=== PATIENT | female | born 1935 | race Caucasian/White ===

== ENCOUNTER 2017-01-21 09:49 | Emergency (ER) | payer MEDICARE, BC ==
[~2017-01-21] VITALS: Ht 160 cm; Wt 60.0 kg
[2017-01-21 09:55] VITALS: BP 179/77; PULSE 89; RESP 19; TEMP 98.1; O2SAT 95
--- NOTE | 2017-01-21 10:06 | PD ---
HPI Chief Complaint: Fall Time Seen by Provider: 10:02 Travel History International Travel<30 days: No Contact w/Intl Traveler<30days: No Traveled to known affect area: No History of Present Illness HPI 81-year-old female with history of hypertension, presents to the ER today brought in by EMS because she states that she had fallen at home onto the right hip, felt a crack and pain which she currently rates at a 7 out of 10 in the right hip which worsens with movements. She denies any head injury or any loss of consciousness. She denies a chest pains, shortness of breath, or any other issues. Modifying Factors: None Associated Signs & Symptoms: Right hip injury Risk Factors: None PFSH Past Medical History Cardiovascular Problems: Yes (high cholesterol, htn) Diabetes: Yes (type 2) ?: Not Past Surgical History Hysterectomy: Yes Social History Tobacco Use: No Allergies-Medications (Allergen,Severity, Reaction): Coded Allergies: Tetracycline (Verified Allergy, Severe, Hives, 01/21/17) Reported Meds & Prescriptions Reported Meds & Active Scripts Active Reported Simvastatin 20 Mg Tab 20 Mg PO DAILY Lisinopril 10 Mg Tab 10 Mg PO DAILY Metformin (Metformin HCl) 500 Mg Tab 500 Mg PO DAILY With a meal Review of Systems Except as stated in HPI: all other systems reviewed are Neg Physical Exam Narrative GENERAL: Well-developed elderly white female patient who is currently in mild distress. Awake, alert, oriented 3. SKIN: Focused skin assessment warm/dry. HEAD: Atraumatic. Normocephalic. EYES: Pupils equal and round. No scleral icterus. No injection or drainage. ENT: No nasal bleeding or discharge. Mucous membranes pink and moist. NECK: Trachea midline. No JVD. CARDIOVASCULAR: Regular rate and rhythm. No murmur appreciated. RESPIRATORY: No accessory muscle use. Clear to auscultation. Breath sounds equal bilaterally. GASTROINTESTINAL: Abdomen soft, non-tender, nondistended. Hepatic and splenic margins not palpable. Pelvis: Stable, tender to palpation of the right hip area with decreased range of motion secondary to pain. EXTREMITIES: No clubbing, cyanosis, or edema. No joint tenderness, effusion, or edema noted. Right dorsal pedis pulses present. MUSCULOSKELETAL: No obvious deformities. No clubbing. No cyanosis. No edema. NEUROLOGICAL: Awake and alert. No obvious cranial nerve deficits. Motor grossly within normal limits. Normal speech. PSYCHIATRIC: Appropriate mood and affect; insight and judgment normal. Data Data Last Documented VS Vital Signs Date Time Temp Pulse Resp B/P Pulse Ox O2 Delivery O2 Flow Rate FiO2 01/21/17 11:07 85 20 163/77 99 01/21/17 09:55 98.1 Orders Electrocardiogram (01/21/17 10:02) Complete Blood Count With Diff (01/21/17 10:02) Basic Metabolic Panel (Bmp) (01/21/17 10:02) Prothrombin Time / Inr (Pt) (01/21/17 10:02) Act Partial Throm Time (Ptt) (01/21/17 10:02) Urinalysis - C+S If Indicated (01/21/17 10:02) Hip, Uni(Ap&Lat) W Ap Pelvis (01/21/17 10:02) Morphine Inj (Morphine Inj) (01/21/17 10:15) Ondansetron Inj (Zofran Inj) (01/21/17 10:15) Urinary Catheter Insert/Apply (01/21/17 10:42) Ct Pelvis W/O Iv Contrast (01/21/17 ) Labs Laboratory Tests Test 01/21/17 01/21/17 10:00 11:09 White Blood Count 6.2 TH/MM3 Red Blood Count 5.05 MIL/MM3 Hemoglobin 15.0 GM/DL Hematocrit 44.0 % Mean Corpuscular Volume 87.1 FL Mean Corpuscular Hemoglobin 29.7 PG Mean Corpuscular Hemoglobin 34.1 % Concent Red Cell Distribution Width 14.0 % Platelet Count 199 TH/MM3 Mean Platelet Volume 8.2 FL Neutrophils (%) (Auto) 73.6 % Lymphocytes (%) (Auto) 13.7 % Monocytes (%) (Auto) 8.2 % Eosinophils (%) (Auto) 3.3 % Basophils (%) (Auto) 1.2 % Neutrophils # (Auto) 4.6 TH/MM3 Lymphocytes # (Auto) 0.9 TH/MM3 Monocytes # (Auto) 0.5 TH/MM3 Eosinophils # (Auto) 0.2 TH/MM3 Basophils # (Auto) 0.1 TH/MM3 CBC Comment DIFF FINAL Differential Comment Prothrombin Time 11.1 SEC Prothromb Time International 1.0 RATIO Ratio Activated Partial 25.0 SEC Thromboplast Time Sodium Level 143 MEQ/L Potassium Level 4.0 MEQ/L Chloride Level 103 MEQ/L Carbon Dioxide Level 32.6 MEQ/L Anion Gap 7 MEQ/L Blood Urea Nitrogen 16 MG/DL Creatinine 0.92 MG/DL Estimat Glomerular Filtration 59 ML/MIN Rate Random Glucose 128 MG/DL Calcium Level 9.2 MG/DL Urine Color YELLOW Urine Turbidity CLEAR Urine pH 7.0 Urine Specific [place] 1.011 Urine Protein NEG mg/dL Urine Glucose (UA) NEG mg/dL Urine Ketones NEG mg/dL Urine Occult Blood NEG Urine Nitrite NEG Urine Bilirubin NEG Urine Urobilinogen LESS THAN 2.0 MG/DL Urine Leukocyte Esterase NEG Urine RBC 1 /hpf Urine WBC LESS THAN 1 /hpf Urine Squamous Epithelial <1 /hpf Cells Microscopic Urinalysis Comment CULT NOT INDICATED MDM Medical Decision Making Medical Screen Exam Complete: Yes Emergency Medical Condition: Yes Medical Record Reviewed: Yes Interpretation(s) Laboratory Tests Test 01/21/17 10:00 Neutrophils (%) (Auto) 73.6 % (16.0-70.0) Monocytes (%) (Auto) 8.2 % (0.0-8.0) Lymphocytes # (Auto) 0.9 TH/MM3 (1.0-4.8) Carbon Dioxide Level 32.6 MEQ/L (21.0-32.0) Estimat Glomerular Filtration 59 ML/MIN (>89) Rate Random Glucose 128 MG/DL (74-106) Last 24 hours Impressions Hip and Pelvis X-Ray 01/21/17 1002 Signed Impressions: Service Date/Time: Saturday, January 21, 2017 10:20 - CONCLUSION: Acute fracturing of the superior and inferior pubic rami on the right. Santosh Hines MD Differential Diagnosis Right hip injuryfractures versus contusions versus dislocation Narrative Course Initial x-ray shows inferior and superior right pubic rami fractures. Case was briefly discussed with orthopedics Dr. Mead who had suggested that if the patient had posterior sacral area pain, to also do a CAT scan to rule out other fractures. However, he states that the patient with this type of fracture can be released with decreased weightbearing to the right side, walker, and to follow-up with his clinic. Return for any worsening in pain or new symptoms as needed. The plan has been discussed with the patient and she states understanding. Repeat CT did not show any other injuries. Diagnosis Primary Impression: Pubic ramus fracture Med/Other Pt SpecificInfo: Prescription(s) given Scripts Hydrocodone-Acetaminophen (Lortab)5-325 Mg Tab1-2 Tab PO Q6H PRN (PAIN) #15 TAB Ref 0 Prov:Brea Cali MD 01/21/17 Disposition: 01 DISCHARGE HOME Condition: Stable Brea Cali MD Jan 21, 2017 10:05
[2017-01-21] MEDS ORDERED: ONDANSETRON HCL 4 MG/2 ML VIAL IV PUSH ONE (10:15)
[2017-01-21] MEDS ORDERED: MORPHINE SULFATE 4 MG/ML INJ IV PUSH ONE (10:15)
[2017-01-21 10:27] LABS: AUTOMATED NEUTROPHIL # 4.6 TH/MM3 (1.8-7.7); BASOPHIL # 0.1 TH/MM3 (0-0.2); BASOPHIL % 1.2 % (0.0-2.0); EOSINOPHIL # 0.2 TH/MM3 (0-0.4); EOSINOPHIL % 3.3 % (0.0-4.0); HEMO FLAGS DIFF FINAL; LYMPH % 13.7 % (9.0-44.0); LYMPHOCYTE # 0.9 TH/MM3 (1.0-4.8); MEAN CELL VOLUME 87.1 FL (80.0-100.0); MEAN CORPUSCULAR HEMOGLOBIN 29.7 PG (27.0-34.0); MEAN CORPUSCULAR HGB CONC 34.1 % (32.0-36.0); MONO % 8.2 % (0.0-8.0); NEUT % 73.6 % (16.0-70.0); PLATELET COUNT 199 TH/MM3 (150-450); RED BLOOD COUNT 5.05 MIL/MM3 (4.00-5.30); WHITE BLOOD COUNT 6.2 TH/MM3 (4.0-11.0)
[2017-01-21] MEDS ORDERED: METF500T PO (10:27)
[2017-01-21] MEDS ORDERED: SIMV20TA PO (10:27)
[2017-01-21] MEDS ORDERED: LISI10TA3 PO (10:27)
[2017-01-21 10:41] LABS: PROTHROMBIN TIME - PATIENT 11.1 SEC (9.8-11.6)
[2017-01-21 10:53] LABS: BICARBONATE 32.6 MEQ/L (21.0-32.0)
[2017-01-21 11:07] VITALS: BP 163/77; PULSE 85; RESP 20; O2SAT 99
--- NOTE | 2017-01-21 11:14 | RADRPT ---
EXAM DATE/TIME: 01/21/2017 10:20 [facility] COMPARISON: No previous studies available for comparison. INDICATIONS : Fell on her right side early this morning. Pain in right hip and right side pelvis. MEDICAL HISTORY : None. SURGICAL HISTORY : None. ENCOUNTER: Initial ACUITY: 1 day PAIN SCORE: 8/10 LOCATION: Right hip. FINDINGS: There is fracturing of the superior and inferior pubic rami on the right. No other possible fracture is seen. There does appear to be some hypertrophy at the periphery of the femoral head on the right side secondary to some degenerative change. The hip joints are normally aligned. CONCLUSION: Acute fracturing of the superior and inferior pubic rami on the right. Santosh Hines MD on January 21, 2017 at 11:11 Board Certified Radiologist. This report was verified electronically.
[2017-01-21 11:32] LABS: BLOOD, URINE NEG (NEG); GLUCOSE,URINE NEG (NEG); KETONE, URINE NEG (NEG); NITRITE,URINE NEG (NEG); SQUAMOUS EPITHELIAL CELL URINE <1 /hpf (0-5); URINE COLOR YELLOW (YELLW/STRAW)
[2017-01-21 11:34] LABS: COMMENT (UR) CULT NOT INDICATED; CULTURE IF INDICATED CULT NOT INDICATED
--- NOTE | 2017-01-21 13:52 | RADRPT ---
EXAM DATE/TIME: 01/21/2017 12:23 [facility] COMPARISON: No previous studies available for comparison. INDICATIONS : Fall onto right side today; abnormal pelvic x-ray. ORAL CONTRAST: No oral contrast ingested. RADIATION DOSE: 18.12 CTDIvol (mGy) MEDICAL HISTORY : None SURGICAL HISTORY : Hysterectomy. Appendectomy. ENCOUNTER: Initial ACUITY: 1 day PAIN SCALE: 5/10 LOCATION: Right pelvis TECHNIQUE: Volumetric scanning of the pelvis was performed. Using automated exposure control and adjustment of the mA and/or kV according to patient size, radiation dose was kept as low as reasonably achievable t o obtain optimal diagnostic quality images. FINDINGS: BOWEL/MESENTERY: The visualized small and large bowel demonstrate no acute abnormality. There is no free fluid. BLADDER: There is no wall thickening or mass. RETROPERITONEUM: There is no aneurysm or lymphadenopathy. REPRODUCTIVE: The patient is status post hysterectomy. INGUINAL: There is no lymphadenopathy or hernia. MUSCULOSKELETAL: There is fracturing of the medial superior pubic rami on the right and the medial and midportion of t he inferior pubic rami on the right. No other possible fractures seen. The pubic symphysis and hip tess ints are normally aligned. There is degenerative change in the lower lumbar spine. CONCLUSION: Right superior and inferior pubic rami fractures. Santosh Hines MD on January 21, 2017 at 13:48 Board Certified Radiologist. This report was verified electronically.
[2017-01-21] MEDS ORDERED: HYDR-3533 PO (14:00)
[2017-01-21] MEDS ORDERED: ACETAMINOPHEN/HYDROcodone 325 MG/5 MG TAB PO ONE (14:00)
--- NOTE | 2017-01-21 14:03 | EKG ---
Date Performed: 01/21/2017 Time Performed: 10:33:20 PTAGE: 81 years EKG: Sinus rhythm SEPTAL MYOCARDIAL INFARCTION Clinical correlation is recommended ABNORMAL ECG NO PREVIOUS TRACING DOCTOR: Pedro Mohamud Interpretating Date/Time 01/21/2017 14:03:07
[2017-01-21] MEDS ORDERED: WALKER WHEELS/F1 MIS (14:05)
== END 2017-01-21 14:56 | disposition home or self-care (01) ==
LOC: NEPE 09:49
DX: S32.599A Other specified fracture of unspecified pubis, initial encounter for closed fracture (principal); E11.9 Type 2 diabetes mellitus without complications; E78.00 Pure hypercholesterolemia, unspecified; Z79.4 Long term (current) use of insulin; I10 Essential (primary) hypertension; W18.30XA Fall on same level, unspecified, initial encounter; Y93.9 Activity, unspecified; Y92.019 Unspecified place in single-family (private) house as the place of occurrence of the external cause; Y99.9 Unspecified external cause status
CPT/HCPCS: 51702; 72192; 73502; 80048; 81001; 85025; 85610; 85730; 93005; 96374; 96375; 99285; J2270; J2405